=== PATIENT | female | born 1960 | race Two or more races ===

== ENCOUNTER → 2024-08-15 | Outpatient (CLI) | payer MEDICAID, SELFPAY ==
--- NOTE | 2024-08-15 14:00 | XR_ITS ---
Examination: CT abdomen with intravenous contrast CT pelvis with intravenous contrast 2-D coronal reconstructions 2-D sagittal reconstructions Date and time of exam:August 15, 2024 1448 hours INDICATIONS: Onset right upper abdominal pain beginning 4 years ago. CTDI: vol (mGy) 33.7 DLP: (mGycm) 1280 Technique: Multiple axial sections of the abdomen and pelvis have been obtained. 64 slice high-resolution scanner used. 3 mm axial sections have been obtained, post intravenous injection 60 cc [id number] 2-D sagittal, coronal reconstructions obtained. Low dose protocols were performed. One or more of the following dose reduction techniques were used; automated exposure control, adjustment of the mA and/or KV according to patient size, use of iterative reconstruction technique. Findings: No focal liver or splenic lesions Absent gallbladder No pancreatic or adrenal mass No renal or ureteral calculi, no hydronephrosis Aorta normal size Normal appendix Colonic diverticulosis, no diverticulitis Atrophic uterus No bladder mass Tiny air droplets in urinary bladder Moderate osteopenia IMPRESSION: No renal or ureteral calculi, no hydronephrosis Normal appendix Colonic diverticulosis, no diverticulitis
== END | disposition home or self-care (01) ==
PROVIDERS: PCP Registered Nurse; Referring Provider Registered Nurse; Visit Provider Registered Nurse
DX: K57.30 Diverticulosis of large intestine without perforation or abscess without bleeding (principal)
CPT/HCPCS: 74177; A4649; Q9967